=== PATIENT | male | born 1970 | race Caucasian/White ===

== ENCOUNTER 2016-12-06 10:36 | Emergency (ER) | payer OTHER ==
[~2016-12-06] VITALS: Ht 190.5 cm; Wt 113.7 kg
[~2016-12-06 10:36] MED LIST: BACTRIM,SEPT1 TABLET PO
[2016-12-06] MEDS ORDERED: FLONASE16 G1 BOTH NARES (12:37)
[2016-12-06] MEDS ORDERED: MUCUS ER600 MG PO (12:37)
[2016-12-06 12:43] VITALS: BP 124/77
== END 2016-12-06 12:45 | disposition home or self-care (01) ==
LOC: EME 10:36
DX: J02.9 Acute pharyngitis, unspecified (principal); J30.9 Allergic rhinitis, unspecified; F17.200 Nicotine dependence, unspecified, uncomplicated
CPT/HCPCS: 87651 90; 99281; 99283; J1100